=== PATIENT | female | born 1995 | race Caucasian/White ===

== ENCOUNTER → 2023-01-06 | Outpatient (CLI) | payer BC ==
[~2023-01-06] MED LIST: ACET-2267 PO; ACYC400T21 PO; AMOX1TAB12 PO; AMPH20TA2 PO; BUPR150T24 PO; CARI1.5C PO; IBUP-30 PO; SPIR50TA PO; VALA500T4 PO; VENL150C3 PO; VENL75CA PO; VENL75TA2 PO
--- NOTE | 2023-01-06 16:51 | Diagnostic Imaging Report ---
PROCEDURE: Pelvic complete, transabdominal and transvaginal sonogram. Limited pelvic doppler. TECHNIQUE: Multiple real-time grayscale images were obtained of the pelvis in various projections transabdominally and transvaginally. Limited pelvic duplex images were obtained. HISTORY: IUD placement evaluation. COMPARISON: None available. FINDINGS: Uterus: The uterus is anteverted and measures 8.4 x 3.8 x 4.5 cm. The myometrium is homogeneous without fibroids. Endometrium: The endometrium is normal in thickness and measures 0.5 cm. An IUD is present in an appropriate position within the uterine fundus. Adnexa: Both ovaries have a normal physiologic appearance. The right ovary measures 2.4 x 3.9 x 2.2 cm and the left ovary measures 1.6 x 2.8 x 4.0 cm. Duplex images reveal normal vascular flow to both ovaries. Other: There is no free fluid within the pelvis. IMPRESSION: 1. Unremarkable pelvic ultrasound. 2. Appropriate positioning of the IUD within the uterine fundus. Dictated by: Dictated on workstation # [id number]
== END ==
LOC: RAD 14:51
PROVIDERS: ATTEND Nurse Practitioner Women's Health
DX: Z30.431 Encounter for routine checking of intrauterine contraceptive device (principal)
CPT/HCPCS: 76830; 76856

== ENCOUNTER 2023-01-30 10:20 | Emergency (ER) | payer BC ==
[~2023-01-30] VITALS: Ht 157 cm; Wt 86.0 kg
[2023-01-30 10:34] VITALS: BP 124/76
--- NOTE | 2023-01-30 10:56 | ED Integumentary General ---
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 NO OTHER C/O VOICED Source: patient Exam Limitations: no limitations History of Present Illness Date Seen by Provider: Jan 30, 2023 Time Seen by Provider: 10:45 Initial Comments Patient is a 27-year-old female who presents to the emergency room with a chief complaint of laceration to the index finger of the left hand just prior to arrival. Patient was trying to open a package of scissors with a knife. She suffered laceration approximately 1 cm to the volar aspect of the left index finger at the proximal interphalangeal joint. No active bleeding. Her tetanus is up-to-date. She denies numbness tingling or weakness to the finger. Timing/Duration: just prior to arrival Severity: mild Location: hands (Left index finger) Possible Cause: other (Laceration) Associated Symptoms: denies symptoms Allergies and Home Medications Allergies Coded Allergies: No Known Drug Allergies (Unverified , 01/06/23) Patient Home Medication List Home Medication List Reviewed: Yes Amoxicillin/Potassium Clav (Amox Tr-K Clv 875-125 mg Tab) 875 Mg-125 Mg Tablet, 1 EACH PO BID Prescribed by: BOOGIE WEAVER on 10/13/22 0320 Cariprazine Hydrochloride (Vraylar) 1.5 Mg Capsule, 1.5 MG PO DAILY, (Reported) Entered as Reported by: ANNIE CASAREZ on 03/13/22 1108 Dextroamphetamine/Amphetamine (Adderall 20 mg Tablet) 20 Mg Tablet, 20 MG PO DAILY, (Reported) Entered as Reported by: ANNIE CASAREZ on 03/13/22 1108 Spironolactone (Aldactone) 50 Mg Tablet, 50 MG PO BID, (Reported) Entered as Reported by: ANNIE CASAREZ on 03/13/22 1108 Valacyclovir HCl (Valtrex) 500 Mg Tablet, 500 MG PO DAILY, (Reported) Entered as Reported by: ANNIE CASAREZ on 03/13/22 1108 Venlafaxine HCl (Venlafaxine HCl ER) 75 Mg Tab.er.24, 75 MG PO BID, (Reported) Entered as Reported by: EVENS PRETTY on 03/16/22 1320 Review of Systems Review of Systems Constitutional: see HPI Musculoskeletal: joint pain Skin: other (Laceration) Past Iadbmnq-Wgnziy-Dypltq Hx Patient Social History Tobacco Use?: No Use of E-Cig and/or Vaping dev: No Substance use?: No Alcohol Use?: Yes Alcohol Frequency: Once in a while Pt feels they are or have been: No Immunizations Up To Date First/Initial COVID19 Vaccinat: 2020 Second COVID19 Vaccination Riley: 2020 Third COVID19 Vaccination Date: 2020 Seasonal Allergies Seasonal Allergies: No Past Medical History Surgeries: Yes (GASTRIC BYPASS) Respiratory: Yes (DIAGNOSED W MILD SLEEP APNEA, WAS NOT PRESCRIBED CPAP) Sleep Apnea Cardiac: No Neurological: No Female Reproductive Disorders: Denies Sexually Transmitted Disease: No HIV/AIDS: No Genitourinary: Yes UTI-Chronic Gastrointestinal: No Musculoskeletal: Yes (NASAL FX) Fractures Endocrine: No HEENT: No Cancer: No Psychosocial: Yes Anxiety, Depression Integumentary: No Blood Disorders: No Adverse Reaction/Blood Tranf: No Family Medical History Hypertension No Pertinent Family Hx Physical Exam Vital Signs Vital Signs - First Documented 01/30/23 10:34 Temp 36.2 Pulse 74 Resp 20 B/P (MAP) 124/76 (92) Pulse Ox 98 O2 Delivery Room Air Capillary Refill : Less Than 3 Seconds General Appearance: WD/WN, no apparent distress HEENT: PERRL/EOMI Respiratory: no respiratory distress, no accessory muscle use Extremities: normal range of motion Neurologic/Psychiatric: alert, normal mood/affect, oriented x 3 Skin: normal color, warm/dry, other (1 cm laceration to the volar aspect of the left index finger at the proximal interphalangeal joint. No active bleeding. Brisk capillary refill distally, intact sensation) Procedures/Interventions Wound Location: Upper Extremities Other Wound Location Left index finger volar PIP joint Wound Length (cm): 1 Wound's Depth, Shape: superficial, linear Wound Explored: clean Irrigated w/ Saline (ccs): 50 Anesthesia: 1% Lidocaine Volume Anesthetic (ccs): 1 Suture: Ethlion Suture Size: 4-0, 6-0 Number of Sutures: 2 Layer Closure?: 1 Number Deep Layer Sutures: 0 Sterile Dressing Applied?: Yes Progress/Results/Core Measures Results/Orders Vital Signs/I&O 01/30/23 10:34 Temp 36.2 Pulse 74 Resp 20 B/P (MAP) 124/76 (92) Pulse Ox 98 O2 Delivery Room Air Blood Pressure Mean: 92 Progress Progress Note : Time: 11:02 Progress Note Patient seen and evaluated by me. Evaluation today includes history and physical exam. Pertinent physical exam findings 1 cm superficial laceration over the volar PIP joint of the left index finger. No active bleeding. Distal neurovascularly intact. Differential diagnosis includes simple laceration, tendon injury Patient has good strength as far as flexion of the left index finger. No concerning findings on physical examination for tendon injury. Patient is treated with local anesthesia 1% lidocaine 1 cc directly into the laceration. No clinical indication for full digital block. Wound was cleansed thoroughly and irrigated, closed with 4-0 Ethilon x2 superficial interrupted sutures. Triple antibiotic ointment and a dry dressing placed. Patient instructed on wound care and to have sutures removed in 10 to 12 days. All questions are sought and answered. Patient is improved at discharge. Departure Impression Primary Impression: Laceration of index finger Qualified Codes: S61.211A - Laceration without foreign body of left index finger without damage to nail, initial encounter Disposition: HOME, SELF-CARE Condition: Stable Departure-Patient Inst. Decision time for Depature: 11:00 Referrals: NAGA DICKINSON DO (PCP/Family) Primary Care Physician Patient Instructions: Laceration Repair With Stitches ED Add. Discharge Instructions: Keep the sutured area clean dry and covered for the first couple of days. You can apply triple antibiotic ointment twice a day after washing with mild soap and water for 2 days then keep the suture line dry. Do not submerge the hands in soapy dishwater or bathtub until the sutures are removed. The stitches will need to come out in 10 to 12 days. You can return to the emergency department for suture removal as it is part of this visit. Return to the emergency department if the wound becomes red, angry, swollen or drains pus. [id number] Tylenol and/or ibuprofen as needed for pain. Copy Copies To 1: NAGA DICKINSON KATHRYN M MD Jan 30, 2023 10:56
[2023-01-30] MEDS ORDERED: LIDOCAINE 1% INJ 10 ML VIAL INJ ONE (11:00)
[2023-01-30] MEDS ORDERED: LIDOCAINE 1% INJ 20 ML VIAL ONE (11:03)
== END 2023-01-30 11:24 | disposition home or self-care (01) ==
LOC: EDUNIT# 10:20 → ER 10:22
DX: S61.211A Laceration without foreign body of left index finger without damage to nail, initial encounter (principal); W26.0XXA Contact with knife, initial encounter
CPT/HCPCS: 12001